=== PATIENT | female | born 1995 ===

== ENCOUNTER 2022-02-10 14:00 | Inpatient (IN) | payer OTHER ==
[~2022-02-10] VITALS: Ht 170.2 cm; Wt 75.3 kg
== END 2022-02-18 17:10 | disposition home or self-care (01) | DRG 768 ==
LOC: LDR 02-16 07:29 → OB/GYN 02-16 17:01
PROVIDERS: ADMIT Specialist; ATTEND Specialist
PROC: 10E0XZZ Delivery of Products of Conception, External Approach (ICD-10-PCS; principal; 2022-02-16)
PROC: 0DQR0ZZ Repair Anal Sphincter, Open Approach (ICD-10-PCS; 2022-02-16)
PROC: 0W8NXZZ Division of Female Perineum, External Approach (ICD-10-PCS; 2022-02-16)
PROC: 4A1HXCZ Monitoring of Products of Conception, Cardiac Rate, External Approach (ICD-10-PCS; 2022-02-16)
DX: O70.21 Third degree perineal laceration during delivery, IIIa (principal); O99.824 Streptococcus B carrier state complicating childbirth; Z37.0 Single live birth; Z3A.39 39 weeks gestation of pregnancy; Z20.822 Contact with and (suspected) exposure to COVID-19